=== PATIENT | female | born 1940 | race Caucasian/White ===

== ENCOUNTER 2016-11-09 14:56 | Outpatient (CLI) | payer MEDICARE, OTHER | END 2016-11-09 14:57 | disposition home or self-care (01) | DX: Z53.9 Procedure and treatment not carried out, unspecified reason (principal); Z12.31 Encounter for screening mammogram for malignant neoplasm of breast ==

== ENCOUNTER 2016-11-09 14:57 | Outpatient (CLI) | payer MEDICARE, OTHER | END 2016-11-09 14:58 | disposition home or self-care (01) | DX: Z78.0 Asymptomatic menopausal state (principal) ==

== ENCOUNTER 2016-11-23 12:37 | Outpatient (CLI) | payer MEDICARE, OTHER | END 2016-11-23 12:38 | disposition home or self-care (01) | DX: N64.4 Mastodynia (principal); M79.621 Pain in right upper arm ==

== ENCOUNTER 2017-10-28 10:26 | Outpatient (CLI) | payer MEDICARE, OTHER ==
[2017-10-28 11:27] LABS: BUN - BLOOD UREA NITROGEN 22 mg/dL (6-20); CALCIUM 9.3 mg/dL (8.5-10.3); CARBON DIOXIDE - CO2 27 mmol/L (21-32); CHLORIDE 104 mmol/L (101-111); CHOL/HDL RATIO 2.5 (<4.4); CHOLESTEROL 150 mg/dL; CREATININE 0.9 mg/dL (0.4-1.0); GFR - MDRD 61 (>89); GLUCOSE 101 mg/dL (70-100); HDL CHOLESTEROL 60 mg/dL; LDL CHOLESTEROL,CALCULATED 72 mg/dL; LDL/HDL RATIO 1.2 (<4.4); SODIUM 138 mmol/L (135-145); VLDL CHOLESTEROL 18 mg/dL
== END 2017-10-28 10:27 | disposition home or self-care (01) ==
LOC: LAB 10:26
PROVIDERS: ATTEND Internal Medicine
DX: Z00.00 Encounter for general adult medical examination without abnormal findings (principal); I10 Essential (primary) hypertension; F32.9 Major depressive disorder, single episode, unspecified; G47.33 Obstructive sleep apnea (adult) (pediatric); G40.301 Generalized idiopathic epilepsy and epileptic syndromes, not intractable, with status epilepticus; L98.9 Disorder of the skin and subcutaneous tissue, unspecified
CPT/HCPCS: 36415; 80048; 80061

== ENCOUNTER 2018-05-11 18:54 | Outpatient (CLI) | payer MEDICARE, OTHER ==
--- NOTE | 2018-05-12 09:40 | Ultrasound Report ---
Procedure Date: 05/11/2018 Accession Number: [id number] / [id number] Procedure: US - Pelvic w/Transvaginal CPT Code: FULL RESULT: EXAM: Pelvic w/Transvaginal DATE: 05/11/2018 8:17 PM CLINICAL HISTORY: ABDOMINAL PAIN, LLQ COMPARISON: None. TECHNIQUE: Realtime transabdominal imaging performed to identify the uterus and adnexa and as an overview of other pelvic structures, followed by transvaginal imaging for better assessment of the endometrium and/or adnexa, with static image documentation. FINDINGS: The uterus is surgically absent. Masses: None. The right and left ovaries are not confidently identified. Interrogation of the left adnexal area indicated as painful reveals hyperperistaltic bowel. No free fluid is identified. No abnormal vascularity is identified by color Doppler. IMPRESSION: Status post hysterectomy. No abnormal masses identified in the painful region. The bilateral adnexa are not confidently identified. RADIA
== END 2018-05-11 18:55 | disposition home or self-care (01) ==
LOC: DI 18:54
PROVIDERS: ATTEND Internal Medicine
DX: R10.32 Left lower quadrant pain (principal); Z90.710 Acquired absence of both cervix and uterus
CPT/HCPCS: 76830; 76856

== ENCOUNTER 2018-07-27 13:42 | Outpatient (CLI) | payer MEDICARE, OTHER ==
--- NOTE | 2018-07-27 16:29 | Mammography Report ---
Reason: RIGHT BREAST PAIN Procedure Date: 07/27/2018 Accession Number: [id number] / [id number] Procedure: SIRI - Diagnostic Dig Bilat CPT Code: FULL RESULT: EXAM: Diagnostic Dig Bilat DATE: 07/27/2018 2:25 PM CLINICAL HISTORY: 77-year-old female presents with right breast pain. TECHNIQUE: Bilateral CC and MLO views in 2-D and tomographic technique were obtained. A right exaggerated cc view was also obtained. Focused diagnostic breast ultrasound was performed. COMPARISON: 11/23/2016, 12/14/2014. FINDINGS: The breasts demonstrate diffuse fatty replacement bilaterally. No mammographic finding is identified in the region marked with a palpable marker which is included on the MLO projection only. Typically benign coarse calcifications are seen bilaterally. Based on limited mammographic visualization due to axillary location, focused breast ultrasound in the axillary region was performed. This revealed a normal-appearing lymph node with no evidence of loss of architecture or abnormal vascularity. IMPRESSION: Benign findings RECOMMENDATION: Recommend routine annual Screening mammography unless otherwise clinically indicated. BIRADS CATEGORY 2: Benign findings STANDARD QUALIFYING STATEMENTS: 1. This examination was not reviewed with the aid of Computer-Aided Detection (CAD). 2. A negative or benign imaging report should not delay biopsy if clinically suspicious findings are present. Consider surgical consultation if warrented. More than 5% of cancers are not identified by imaging. 3. Dense breasts may obscure an underlying neoplasm. 4. This examination was reviewed with the aid of 3D imaging (tomography).
== END 2018-07-27 13:43 | disposition home or self-care (01) ==
LOC: DI 13:42
PROVIDERS: ATTEND Physician Assistant Medical
DX: N64.4 Mastodynia (principal)
CPT/HCPCS: 76642; 77062; 77066

== ENCOUNTER 2018-08-24 09:33 | Outpatient (CLI) | payer MEDICARE, OTHER ==
[2018-08-24 18:24] LABS: ALT ALANINE AMINOTRANSFERASE 22 IU/L (10-60); AST ASPARTATE AMINOTRANSFERASE 23 IU/L (10-42); CHOL/HDL RATIO 2.7 (<4.4); CHOLESTEROL 151 mg/dL; HDL CHOLESTEROL 56 mg/dL; LDL CHOLESTEROL,CALCULATED 65 mg/dL; LDL/HDL RATIO 1.2 (<4.4); VLDL CHOLESTEROL 30 mg/dL
== END 2018-08-24 09:34 | disposition home or self-care (01) ==
LOC: LAB.F 09:33
PROVIDERS: ATTEND Internal Medicine
DX: E78.5 Hyperlipidemia, unspecified (principal)
CPT/HCPCS: 36415; 80061; 83721; 84450; 84460

== ENCOUNTER 2018-08-31 09:24 | Outpatient (CLI) | payer MEDICARE, OTHER ==
[2018-08-31 17:56] LABS: CALCIUM 9.4 mg/dL (8.5-10.3); CREATININE 0.7 mg/dL (0.4-1.0)
== END 2018-08-31 09:25 | disposition home or self-care (01) ==
LOC: LAB.F 09:24
PROVIDERS: ATTEND Internal Medicine
DX: Z13.1 Encounter for screening for diabetes mellitus (principal); G40.309 Generalized idiopathic epilepsy and epileptic syndromes, not intractable, without status epilepticus
CPT/HCPCS: 36415; 80048; 80177; 83036

== ENCOUNTER 2018-11-15 11:00 | Outpatient (CLI) | payer MEDICARE, OTHER ==
--- NOTE | 2018-11-17 09:36 | DEXA Report ---
Reason: OSTEOPENIA,UNSPECIFIED LOCATION,TEMPORAL LOBE EPIL Procedure Date: 11/15/2018 Accession Number: [id number] / [id number] Procedure: DEX - Dexa Spine and/or Hip CPT Code: FULL RESULT: EXAM: Dexa Spine and/or Hip DATE: 11/15/2018 12:04 PM CLINICAL HISTORY: OSTEOPENIA,UNSPECIFIED LOCATION,TEMPORAL LOBE EPIL TECHNIQUE: Dual energy x-ray absorptiometry (DXA) was performed on a Kirom[employer] System. Regions measured are the AP Spine, femoral neck, and if needed forearm. COMPARISON: 11/09/2016. In accordance with the International Society for Clinical Densitometry (ISCD) guidelines, data from previous exams may be reanalyzed using current recommendations and techniques. This is done to allow a more accurate basis for comparison with the current study. FINDINGS: The data for the lumbar spine is as follows: BMD (g/cm/cm) T-SCORE Z-SCORE REGION L1 1.052 -0.6 0.1 L2 1.141 -0.5 0.2 L3 1.217 0.1 0.8 L4 1.228 0.2 0.9 TOTAL 1.166 -0.1 0.6 NOTE: All evaluable vertebrae are used for classification The data for the hip is as follows: BMD (g/cm/cm) T-SCORE Z-SCORE REGION Neck 0.882 -1.1 0.2 TOTAL 0.974 -0.3 0.8 NOTE: The femoral neck or total proximal femur, whichever is lowest, is used for classification. DXA RESULTS SUMMARY: Spine SCAN DATE AGE BMD CHANGE VS CHANGE VS PREVIOUS PREVIOUS % 11/15/2018 [age] 1.166 0.076* 7.0* 11/09/2016 76.1 1.090 * Denotes significant change at the 95% confidence level. Denotes dissimilar scan types or analysis methods. DXA RESULTS SUMMARY: Hip SCAN DATE AGE BMD CHANGE VS CHANGE VS PREVIOUS PREVIOUS % 11[age]15/2018 78.1 0.974 0.037* 3.9* 11/09/2016 76.1 0.937 * Denotes significant change at the 95% confidence level. Denotes dissimilar scan types or analysis methods. IMPRESSION: THE WHO CLASSIFICATION BASED ON THE INTERNATIONAL REFERENCE STANDARD IS OSTEOPENIA. THE FRACTURE RISK IS INCREASED. RECOMMENDATION: Patients with diagnosis of osteoporosis or osteopenia should have regular bone mineral density assessment. For those eligible for Medicare, routine testing is allowed once every 2 years. Testing frequency can be increased for patients who have rapidly progressing disease or for those who are receiving medical therapy to restore bone mass. COMMENT: World Health Organization (WHO) definitions for osteoporosis and osteopenia: NORMAL BMD: T-score at -1.0 or higher, fracture risk is low OSTEOPENIA BMD: T-score between -1.0 and -2.5, fracture risk is increased. OSTEOPOROSIS BMD: T-score at -2.5 or lower, fracture risk is high. National Osteoporosis Foundation recommends: 1. Obtain adequate dietary calcium (at least 1200 mg per day) and vitamin D (400-800 international units per day). 2. Participate, as appropriate, in regular weightbearing and muscle-strengthening exercise. 3. Avoid tobacco use and reduce alcohol and caffeine intake. 4. For more detailed information see the website at www.NOF.org.
== END 2018-11-15 11:01 | disposition home or self-care (01) ==
LOC: DI 11:00
PROVIDERS: ATTEND Psychiatry & Neurology Neurology
DX: M85.88 Other specified disorders of bone density and structure, other site (principal)
CPT/HCPCS: 77080

== ENCOUNTER 2019-08-21 15:20 | Outpatient (CLI) | payer MEDICARE, OTHER ==
[2019-08-21 17:46] LABS: BASOPHILS # (AUTO) 0.1 10^3/uL (0.0-0.1); BASOPHILS % (AUTO) 0.9 %; EOSINOPHILS # (AUTO) 0.3 10^3/uL (0.0-0.7); EOSINOPHILS % (AUTO) 4.1 %; HGB - HEMOGLOBIN 13.1 g/dL (12.0-16.0); LYMPHOCYTES # (AUTO) 2.2 10^3/uL (1.5-3.5); LYMPHOCYTES % (AUTO) 33.3 %; MEAN CORPUSCULAR HEMOGLOBIN 30.9 pg (27.0-31.0); MEAN CORPUSCULAR HGB CONC 32.6 g/dL (32.0-36.0); MEAN CORPUSCULAR VOLUME 94.8 fL (81.0-99.0); MEAN PLATELET VOLUME 9.6 fL (7.9-10.8); MONOCYTES # (AUTO) 0.6 10^3/uL (0.0-1.0); MONOCYTES % (AUTO) 9.8 %; NEUTROPHILS # (AUTO) 3.4 10^3/uL (1.5-6.6); NEUTROPHILS % (AUTO) 51.7 %; PLT - PLATELET COUNT 334 10^3/uL (130-450); RED BLOOD COUNT 4.24 10^6/uL (4.20-5.40); RED CELL DISTRIBUTION WIDTH 12.5 % (12.0-15.0); WHITE BLOOD COUNT 6.5 x10^3/uL (4.8-10.8)
[2019-08-21 20:31] LABS: ALBUMIN 4.3 g/dL (3.2-5.5); ALBUMIN/GLOBULIN RATIO 1.3 (1.0-2.2); ALKALINE PHOSPHATASE 65 IU/L (42-121); ALT ALANINE AMINOTRANSFERASE 23 IU/L (10-60); AST ASPARTATE AMINOTRANSFERASE 23 IU/L (10-42); BILIRUBIN,TOTAL 0.7 mg/dL (0.2-1.0); BUN - BLOOD UREA NITROGEN 22 mg/dL (6-20); CALCIUM 9.6 mg/dL (8.5-10.3); CARBON DIOXIDE - CO2 26 mmol/L (21-32); CHLORIDE 103 mmol/L (101-111); CHOL/HDL RATIO 3.1 (<4.4); CHOLESTEROL 162 mg/dL; CREATININE 0.9 mg/dL (0.4-1.0); GFR - MDRD 61 (>89); GLUCOSE 94 mg/dL (70-100); HDL CHOLESTEROL 52 mg/dL; LDL CHOLESTEROL,CALCULATED 72 mg/dL; LDL/HDL RATIO 1.4 (<4.4); SODIUM 139 mmol/L (135-145); TOTAL PROTEIN 7.6 g/dL (6.7-8.2); VLDL CHOLESTEROL 38 mg/dL
[2019-08-21 20:32] LABS: CRP - C-REACTIVE PROTEIN < 1.0 mg/dL (0-1.0)
[2019-08-21 21:34] LABS: HB2 TOTAL 13.9 g/dL; HEMOGLOBIN A1C 0.55 g/dL; HEMOGLOBIN A1C % 5.8 % (4.6-6.2)
== END 2019-08-21 15:21 | disposition home or self-care (01) ==
LOC: LAB.S 15:20
PROVIDERS: ATTEND Physician Assistant Medical
DX: I10 Essential (primary) hypertension (principal); E78.5 Hyperlipidemia, unspecified; R73.01 Impaired fasting glucose; R07.89 Other chest pain
CPT/HCPCS: 36415; 80053; 80061; 83036; 83721; 83735; 84443; 85025; 86140

== ENCOUNTER 2019-09-20 08:43 | Outpatient (CLI) | payer MEDICARE, OTHER ==
--- NOTE | 2019-09-20 16:43 | CARDIAC PROCEDURE NOTE ---
DATE OF SERVICE: 09/20/2019 Physician: Wendy Valencia MD INDICATION: Atypical chest pain. CARDIAC RISK FACTORS: Postmenopausal status, hypertension, family history of heart disease, hyperlipidemia. PROCEDURE: After signing informed consent, the patient underwent a Anand- protocol treadmill stress test with Echo imaging at rest and at peak heart rate. RESTING HEART RATE: 75. PEAK HEART RATE: 145 (101% predicted maximum heart rate for age). RESTING BLOOD PRESSURE: 134/81. PEAK BLOOD PRESSURE: 194/95. The patient exercised for 2 minutes and 20 seconds on a Anand-protocol treadmill stress test. She developed shortness of breath quickly, but had no chest pain. Oxygen saturation was 96-98% throughout the entire test. The test was stopped because of fatigue and shortness of breath. The patient reached a peak heart rate of 145, which is 101% predicted maximum heart rate for age and achieved 4.6 METS. Normal heart rate response, hypertensive blood pressure response to exercise. RESTING EKG: Normal sinus rhythm, left atrial enlargement, LVH voltage, otherwise within normal limits. EKG AT PEAK: Horizontal [address] depressions in leads II, III, and aVF, and T- wave flattening in leads III, aVF, and V3 through V6. These changes returned toward baseline at the 5-minute recovery EKG. SUMMARY 1. Abnormal resting EKG. 2. ST-segment depressions and T-wave abnormalities occur with exercise stress testing at a low level of exercise. 3. The patient is deconditioned. 4. Echo images reported separately. 5. This patient's cardiac risk based on EKG changes: High. cc: Farzaneh Barney PA-C TD: 09/20/2019 16:23 MTDD
== END 2019-09-20 08:44 | disposition home or self-care (01) ==
LOC: DI 08:43
PROVIDERS: ATTEND Physician Assistant Medical
DX: R07.89 Other chest pain (principal); R94.31 Abnormal electrocardiogram [ECG] [EKG]; I10 Essential (primary) hypertension; E78.5 Hyperlipidemia, unspecified; Z82.49 Family history of ischemic heart disease and other diseases of the circulatory system; Z78.0 Asymptomatic menopausal state
CPT/HCPCS: 93350

== ENCOUNTER 2020-09-18 09:52 | Outpatient (CLI) | payer MEDICARE, OTHER ==
[2020-09-18 10:27] LABS: CHOL/HDL RATIO 2.3 (<4.4); CHOLESTEROL 133 mg/dL; HDL CHOLESTEROL 57 mg/dL; LDL CHOLESTEROL,CALCULATED 55 mg/dL; VLDL CHOLESTEROL 21 mg/dL
== END 2020-09-18 09:53 | disposition home or self-care (01) ==
LOC: LAB 09:52
PROVIDERS: ATTEND Internal Medicine Cardiovascular Disease
DX: E78.5 Hyperlipidemia, unspecified (principal)
CPT/HCPCS: 36415; 80061; 83721

== ENCOUNTER 2020-12-17 09:58 | Outpatient (CLI) | payer MEDICARE, OTHER ==
[2020-12-17 10:20] LABS: BASOPHILS # (AUTO) 0.1 10^3/uL (0.0-0.1); EOSINOPHILS # (AUTO) 0.2 10^3/uL (0.0-0.7); EOSINOPHILS % (AUTO) 4.4 %; HGB - HEMOGLOBIN 13.2 g/dL (12.0-16.0); LYMPHOCYTES # (AUTO) 1.9 10^3/uL (1.5-3.5); LYMPHOCYTES % (AUTO) 36.6 %; MEAN CORPUSCULAR HEMOGLOBIN 31.2 pg (27.0-31.0); MEAN CORPUSCULAR HGB CONC 32.6 g/dL (32.0-36.0); MEAN CORPUSCULAR VOLUME 95.7 fL (81.0-99.0); MONOCYTES # (AUTO) 0.5 10^3/uL (0.0-1.0); MONOCYTES % (AUTO) 9.6 %; NEUTROPHILS # (AUTO) 2.5 10^3/uL (1.5-6.6); NEUTROPHILS % (AUTO) 48.2 %; PLT - PLATELET COUNT 266 10^3/uL (130-450); RED BLOOD COUNT 4.23 10^6/uL (4.20-5.40); RED CELL DISTRIBUTION WIDTH 12.4 % (12.0-15.0); WHITE BLOOD COUNT 5.2 x10^3/uL (4.8-10.8)
[2020-12-17 10:30] LABS: ALBUMIN 4.4 g/dL (3.2-5.5); ALBUMIN/GLOBULIN RATIO 1.4 (1.0-2.2); BILIRUBIN,TOTAL 0.7 mg/dL (0.2-1.0); CALCIUM 9.5 mg/dL (8.5-10.3); CREATININE 0.9 mg/dL (0.4-1.0); TOTAL PROTEIN 7.6 g/dL (6.7-8.2)
== END 2020-12-17 09:59 | disposition home or self-care (01) ==
LOC: LAB 09:58
PROVIDERS: ATTEND Registered Nurse
DX: I10 Essential (primary) hypertension (principal); L65.9 Nonscarring hair loss, unspecified; E78.5 Hyperlipidemia, unspecified
CPT/HCPCS: 36415; 80053; 84443; 85025

== ENCOUNTER 2021-07-04 09:42 | Outpatient (CLI) | payer MEDICARE, OTHER ==
[2021-07-04 10:44] VITALS: BP 128/75
--- NOTE | 2021-07-04 10:44 | SLEEP CARE CONSULTATION ---
Information from patient questionnaire entered by June Jimenez. I have reviewed and concur with the information entered by June Jimenez. This document represents the service I personally performed and the decisions made by , Sanna Avery ARNP. History of Present Illness Service Date and Time: 07/04/2021 0942 Reason for Visit: New patient, Previously diagnosed sleep apnea (2013, AHI 34), sleep apnea on CPAP therapy Accompanied by: Spouse Chief Complaint: reports: Other (New CPAP) Usual bedtime: 11 PM Time it takes to fall asleep: 10-15 minutes Snores at night: No Observed to quit breathing while asleep: No Sleeps alone due to snoring: No Toss, Turn, or Twitch while sleeping: No Recalls having dreams: No Feels refreshed in the morning: No Morning headache: No Sleepy or fatigued during the day: No Ever fallen asleep while driving: No Takes day naps: No Dreams during day naps: No Prior sleep studies: Yes Year and Where: [facility] 2013 Additional HPI information: VALERIA GALLEGO was previously diagnosed to have severe, AHI 34, obstructive sleep apnea-hypopnea syndrome and comes in today with spouse to establish care for CPAP therapy. - Parasomnia Symptoms Ever been unable to move upon waking from sleep: No Walks in sleep: No Talks in sleep: No Ever acted out dreams in sleep: No Ever felt weak in the knees when startled or emotional: No Bothered by creepy, crawly, restless sensations in legs: No Problems with memory or concentration: No CPAP Compliance Data - Data Reviewed with Patient Average duration of nightly device use: 8 hours 30 minutes Compliance rate %: 100 Current pressure setting (cmH2O): 9-13 Average residual AHI: 5.3 Average large leak: 2 secs Compliance data discussion: She is using [employer] to get her supplies. She has a [employer] Auto, series 60 that was last updated in 2013. She uses a Dreamwear Wisp mask. She does have an old mask as a backup. She last change her cushion about a week ago. Subjective Patient concerns: reports: mask leak noise (sometimes, just needs adjustment). denies: aerophagia, mask discomfort, air blowing in eyes, condensation in mask/hose, nasal congestion, dry mouth, nose, throat, epistaxis, other Observed to snore while using device: No Current pressure setting perceived as: comfortable On therapy, patient: reports: sleeping better, awakening more refreshed, being more awake and alert during the day, more rested overall. denies: drowsiness while driving Initial [place] Sleepiness Scale score: 3 (in 2020) Past Medical History Past Medical History: reports: Hypertension, Depression, Other (Epilepsy) Social History The patient's occupation is a Retired. Patient is and lives in [place]. Have you smoked in the past 12 months: No Cigarettes per day (20/pack): 10 Years of smokin Quit date: 1961 Smoking Pack Years: 1.0 Alcohol use: Yes Alcohol amount and frequency: 1-4 drinks a week Caffeine use: Yes Caffeine amount and frequency: 2 drinks a day Family History Family history of sleep disordered breathing: Yes Family Hx Sleep Apnea: Other: Sleep apnea - Treated (son) Allergies and Home Medications Drug allergies reviewed: Yes (see list in chart) Home medication list reviewed: Yes Allergy and home medication list: Vimpat for seizures Acetaminophen Aspirin Atorvastatin Calcium- Vit D Citalopram Fluticasone propionate, nasal Levetiracetam Lisinopril Ocuvite PO Review of Systems Weight gain over past 5 years: 10 Cardiovascular: reports: high blood pressure Gastrointestinal: reports: heartburn (occasional in evening, will take Tums as needed) Urinary: reports: incontinence Neurological: reports: seizure Immunologic: reports: sneezing Physical Exam Blood Pressure: 128/75 Cuff size: wrist Heart Rate: 62 O2 Saturation: 98 Height: 5 ft 2 in Weight: 221 lb Body Mass Index: 40.4 BMI Classification: Morbidly Obese Heart: regular rate and rhythm Lungs: clear bilaterally Impression and Plan 1. Obstructive Sleep Apnea-Hypopnea Syndrome, severe, with excellent treatment compliance and fair apnea control with minimal elevation of residual AHI. On CPAP therapy, the patient has better sleep quality and is more rested overall. Patient is here to establish care so she can get a replacement for her recalled machine. She last had a new machine in 2013, so is eligible. Patient has already registered their device for the recall. Patient denies any black particles seen in machine or hoses, any unusual odors coming from device. Patient has not experienced any physical symptoms such as upper airway irritation, headache, skin or eye irritation, asthma, nausea/vomiting, difficulty breathing or chest pain. Since the patients current machine is at least 5 years old the patient is opting to update their device with a device that is not on the recall. I will write order and fax to her DME supplier. Patient voiced understanding and agreement with plan. Patient's apnea severity and rationale for treatment to reduce apnea, improve sleep quality and reduce cardiovascular and cerebrovascular events was reviewed. I also reviewed the benefit of consistent device use of CPAP for hypertension, depression and epilepsy. Patient was encouraged to lose weight for their overall health and to reduce apneas. * Continue auto CPAP pressure at 9-13 cmH2O * Update device and supplies * Notify me if snoring with mask or feeling that the pressure is too much or too little * Attempt to lose weight * Call this office if any problems using CPAP * Return for follow up one month after obtaining new device, or sooner if concerns arise Counseling Topics: Spare mask, Weight loss health impact Visit Type: In Office Other Participants: Spouse/Significant Other Time Spent with Patient (minutes): 39 Provider Statement: I spent 100% of the Face to Face Visit with the patient with greater than 50% spent counseling the patient and coordination of care.
== END 2021-07-04 09:43 | disposition home or self-care (01) ==
LOC: SC 09:42
PROVIDERS: ATTEND Nurse Practitioner Family
DX: G47.33 Obstructive sleep apnea (adult) (pediatric) (principal); E66.01 Morbid (severe) obesity due to excess calories; Z68.41 Body mass index [BMI] 40.0-44.9, adult
CPT/HCPCS: 99203; G0463; 99212

== ENCOUNTER → 2022-11-26 15:42 | Outpatient (CLI) | payer MEDICARE, OTHER ==
--- NOTE | 2022-11-26 12:23 | XRAY Report ---
PROCEDURE: Knee 4 View BILAT INDICATIONS: BILAT KNEE PAIN TECHNIQUE: 4 views of the bilateral knee(s) were acquired. COMPARISON: X-ray knee 01/18/2015 FINDINGS: Bones: No fractures or dislocations. No suspicious bony lesions. Bilateral arthroplasties are pres ent. Hardware is intact without evidence of hardware fracture or periprosthetic lucency to suggest lo osening. Soft tissues: No joint effusion. No suspicious soft tissue calcifications. IMPRESSION: Bilateral knee arthroplasties as above. Reviewed by: Carmen Yusuf MD on 11/26/2022 12:22 PM PST Approved by: Carmen Yusuf MD on 11/26/2022 12:22 PM PST Station ID: [id number]
== END | disposition home or self-care (01) ==
LOC: DI.WOS 15:42
PROVIDERS: ATTEND Orthopaedic Surgery
DX: M25.561 Pain in right knee (principal); M25.562 Pain in left knee; Z96.653 Presence of artificial knee joint, bilateral

== ENCOUNTER 2023-07-05 09:22 | Outpatient (CLI) | payer MEDICARE, OTHER ==
[2023-07-05 09:35] LABS: BASOPHILS # (AUTO) 0.1 10^3/uL (0.0-0.1); BASOPHILS % (AUTO) 0.9 %; EOSINOPHILS # (AUTO) 0.3 10^3/uL (0.0-0.7); EOSINOPHILS % (AUTO) 5.4 %; HCT - HEMATOCRIT 41.8 % (37.0-47.0); HGB - HEMOGLOBIN 13.6 g/dL (12.0-16.0); LYMPHOCYTES # (AUTO) 1.9 10^3/uL (1.5-3.5); LYMPHOCYTES % (AUTO) 33.5 %; MEAN CORPUSCULAR HEMOGLOBIN 30.2 pg (27.0-31.0); MEAN CORPUSCULAR HGB CONC 32.5 g/dL (32.0-36.0); MEAN CORPUSCULAR VOLUME 92.9 fL (81.0-99.0); MONOCYTES # (AUTO) 0.5 10^3/uL (0.0-1.0); MONOCYTES % (AUTO) 9.7 %; NEUTROPHILS # (AUTO) 2.8 10^3/uL (1.5-6.6); NEUTROPHILS % (AUTO) 50.3 %; PLT - PLATELET COUNT 306 10^3/uL (130-450); RED CELL DISTRIBUTION WIDTH 12.6 % (12.0-15.0); WHITE BLOOD COUNT 5.6 x10^3/uL (4.8-10.8)
[2023-07-05 09:57] LABS: ALBUMIN 4.4 g/dL (3.2-5.5); ALBUMIN/GLOBULIN RATIO 1.6 (1.0-2.2); ALKALINE PHOSPHATASE 73 IU/L (42-121); ALT ALANINE AMINOTRANSFERASE 16 IU/L (10-60); AST ASPARTATE AMINOTRANSFERASE 18 IU/L (10-42); BILIRUBIN,TOTAL 0.5 mg/dL (0.2-1.0); BUN - BLOOD UREA NITROGEN 24 mg/dL (6-20); CALCIUM 9.9 mg/dL (8.5-10.3); CARBON DIOXIDE - CO2 27 mmol/L (21-32); CHLORIDE 105 mmol/L (101-111); CHOL/HDL RATIO 2.3 (<4.4); CHOLESTEROL 137 mg/dL; CREATININE 0.9 mg/dL (0.6-1.3); GFR - MDRD 60 (>89); GLUCOSE 113 mg/dL (74-104); HDL CHOLESTEROL 60 mg/dL; LDL CHOLESTEROL,CALCULATED 54 mg/dL; LDL/HDL RATIO 0.9 (<4.4); POTASSIUM 4.3 mmol/L (3.5-4.5); SODIUM 138 mmol/L (135-145); TOTAL PROTEIN 7.1 g/dL (6.4-8.9); TRIGLYCERIDES 116 mg/dL (48-352); VLDL CHOLESTEROL 23 mg/dL
[2023-07-05 10:07] LABS: THYROID STIMULATING HORMONE 1.78 uIU/mL (0.34-5.60)
== END 2023-07-05 09:23 | disposition home or self-care (01) ==
LOC: LAB 09:22
PROVIDERS: ATTEND Registered Nurse
DX: Z13.220 Encounter for screening for lipoid disorders (principal); Z79.899 Other long term (current) drug therapy; Z13.29 Encounter for screening for other suspected endocrine disorder
CPT/HCPCS: 36415; 80053; 80061; 83721; 84443; 85025

== ENCOUNTER 2024-01-28 13:26 | Outpatient (CLI) | payer MEDICARE, OTHER ==
--- NOTE | 2024-01-28 14:35 | XRAY Report ---
PROCEDURE: Ribs w/PA Chest 3+V RT INDICATIONS: RIGHT SIDED RIB PAIN TECHNIQUE: 2 views of the ribs were acquired, along with a single view chest. COMPARISON: None. FINDINGS: Surgical changes and devices: None. Bones and chest wall: No fractures or dislocations. No suspicious bony lesions. Overlying soft tis sues appear unremarkable. Lungs and pleura: No pleural effusions or pneumothorax. Lungs appear clear. Mediastinum: Mediastinal contours appear normal. Heart size is normal. IMPRESSION: No displaced rib fracture or pneumothorax. Reviewed by: Milad Holguin MD on 01/28/2024 2:34 PM PDT Approved by: Milad Holguin MD on 01/28/2024 2:34 PM PDT Station ID: [id number]
== END 2024-01-28 13:27 | disposition home or self-care (01) ==
LOC: DI 13:26
PROVIDERS: ATTEND Nurse Practitioner
DX: R07.81 Pleurodynia (principal)

== ENCOUNTER 2024-07-19 10:54 | Outpatient (CLI) | payer MEDICARE, OTHER ==
[2024-07-19 11:18] LABS: BASOPHILS # (AUTO) 0.1 10^3/uL (0.0-0.1); BASOPHILS % (AUTO) 0.8 %; EOSINOPHILS # (AUTO) 0.3 10^3/uL (0.0-0.7); EOSINOPHILS % (AUTO) 4.1 %; HCT - HEMATOCRIT 40.5 % (37.0-47.0); HGB - HEMOGLOBIN 13.5 g/dL (12.0-16.0); LYMPHOCYTES # (AUTO) 2.1 10^3/uL (1.5-3.5); LYMPHOCYTES % (AUTO) 31.5 %; MEAN CORPUSCULAR HEMOGLOBIN 30.9 pg (27.0-31.0); MEAN CORPUSCULAR HGB CONC 33.3 g/dL (32.0-36.0); MEAN CORPUSCULAR VOLUME 92.7 fL (81.0-99.0); MEAN PLATELET VOLUME 8.6 fL (7.9-10.8); MONOCYTES # (AUTO) 0.6 10^3/uL (0.0-1.0); MONOCYTES % (AUTO) 9.3 %; NEUTROPHILS # (AUTO) 3.6 10^3/uL (1.5-6.6); NEUTROPHILS % (AUTO) 54.1 %; PLT - PLATELET COUNT 291 10^3/uL (130-450); RED BLOOD COUNT 4.37 10^6/uL (4.20-5.40); RED CELL DISTRIBUTION WIDTH 12.5 % (12.0-15.0); WHITE BLOOD COUNT 6.6 x10^3/uL (4.8-10.8)
[2024-07-19 11:36] LABS: ALBUMIN 4.4 g/dL (3.2-5.5); ALBUMIN/GLOBULIN RATIO 1.6 (1.0-2.2); ALKALINE PHOSPHATASE 75 IU/L (42-121); ALT ALANINE AMINOTRANSFERASE 15 IU/L (10-60); AST ASPARTATE AMINOTRANSFERASE 16 IU/L (10-42); BILIRUBIN,TOTAL 0.5 mg/dL (0.2-1.0); BUN - BLOOD UREA NITROGEN 23 mg/dL (6-20); CALCIUM 9.8 mg/dL (8.5-10.3); CARBON DIOXIDE - CO2 27 mmol/L (21-32); CHLORIDE 105 mmol/L (101-111); CHOL/HDL RATIO 2.4 (<4.4); CHOLESTEROL 138 mg/dL; CREATININE 0.8 mg/dL (0.6-1.3); GFR - MDRD 69 (>89); GLUCOSE 106 mg/dL (74-104); HDL CHOLESTEROL 58 mg/dL; LDL CHOLESTEROL,CALCULATED 59 mg/dL; POTASSIUM 4.4 mmol/L (3.5-4.5); SODIUM 137 mmol/L (135-145); TOTAL PROTEIN 7.1 g/dL (6.4-8.9); TRIGLYCERIDES 106 mg/dL; VLDL CHOLESTEROL 21 mg/dL
[2024-07-19 11:44] LABS: ESTIMATED AVERAGE GLUCOSE 123 mg/dL (70-100); HEMOGLOBIN A1c% 5.9 % (4.27-6.07)
[2024-07-19 11:50] LABS: THYROID STIMULATING HORMONE 1.53 uIU/mL (0.34-5.60)
== END 2024-07-19 10:55 | disposition home or self-care (01) ==
LOC: LAB 10:54
PROVIDERS: ATTEND Registered Nurse
DX: R73.01 Impaired fasting glucose (principal); Z13.220 Encounter for screening for lipoid disorders; Z13.228 Encounter for screening for other metabolic disorders; Z13.0 Encounter for screening for diseases of the blood and blood-forming organs and certain disorders involving the immune mechanism; Z13.29 Encounter for screening for other suspected endocrine disorder; I10 Essential (primary) hypertension
CPT/HCPCS: 36415; 80053; 80061; 83036; 83721; 84443; 85025